=== PATIENT | female | born 1945 | race Caucasian/White ===

== ENCOUNTER 2021-02-26 13:08 | Inpatient (IN) | payer MEDICARE, OTHER ==
[~2021-02-26] VITALS: Ht 160 cm; Wt 98.0 kg
[~2021-02-26 13:08] MED LIST: AMARYL4 MG PO; CLARITIN10 M2 PO; COZAAR 50MG TAB50 MG PO; D3-20002000 UNIT PO; JANUVIA100 MG PO; LASIX20 MG PO; LEVAQUIN500 MG PO; MEDROL DOSEPAK 24 MG PO; NITROSTAT0.4 MG SL; PARLODEL2.5 MG PO; PENICILLIN V P500 MG PO; TOPROL XL25 MG PO; VITAMIN E400 UNI3 PO; ZANTAC150 MG PO
[2021-02-26 14:03] LABS: HEMOGLOBIN 12.3 gm/dl (12.3-15.3); RED BLOOD COUNT 4.08 M/UL (4.00-5.10); WHITE BLOOD COUNT 10.8 K/UL (4.5-11.0)
[2021-02-26 14:35] LABS: BUN/CREATININE RATIO 20 (0-10)
[2021-02-26] MEDS ORDERED: NITROSTAT0.4 MG SL (15:23)
[2021-02-26] MEDS ORDERED: ALPRAZOLAM1 MG PO (15:24)
[2021-02-26] MEDS ORDERED: POTASSIUM CHLO10 MEQ PO (15:28)
[2021-02-26] MEDS ORDERED: VITAMIN D325 MCG PO (15:29)
[2021-02-26] MEDS ORDERED: VITAMIN C100 MG PO (15:29)
[2021-02-26] MEDS ORDERED: B-12500 MCG PO (15:30)
[2021-02-26] MEDS ORDERED: ASPIRIN81 MG PO (15:31)
[2021-02-26] MEDS ORDERED: MAGNESIUM 300300 MG PO (15:31)
[2021-02-28 06:12] LABS: HEMOGLOBIN 12.7 gm/dl (12.3-15.3); RED BLOOD COUNT 4.24 M/UL (4.00-5.10); WHITE BLOOD COUNT 10.1 K/UL (4.5-11.0)
[2021-02-28 06:30] LABS: BUN/CREATININE RATIO 20 (0-10)
[2021-03-01 07:41] LABS: HEMOGLOBIN 10.7 gm/dl (12.3-15.3); RED BLOOD COUNT 3.59 M/UL (4.00-5.10); WHITE BLOOD COUNT 9.6 K/UL (4.5-11.0)
[2021-03-01 07:53] LABS: BUN/CREATININE RATIO 31 (0-10)
[2021-03-01 14:36] LABS: BORDETELLA PARAPERTUSSIS Not Detected (Not Detectd); BORDETELLA PERTUSSIS Not Detected (Not Detectd); CHLAMYDIA PNEUMONIAE Not Detected (Not Detectd); CORONAVIRUS HKU1 Not Detected (Not Detectd); CORONAVIRUS NL63 Not Detected (Not Detectd); CORONAVIRUS OC43 Not Detected (Not Detectd); CORONOAVIRUS 229E Not Detected (Not Detectd); HUMAN METAPNEUMOVIRUS Not Detected (Not Detectd); HUMAN RHINOVIRUS/ENTEROVIRUS Not Detected (Not Detectd); INFLUENZA A Not Detected (Not Detectd); INFLUENZA B Not Detected (Not Detectd); MYCOPLASMA PNEUMONIAE Not Detected (Not Detectd); PARAINFLUENZA VIRUS 1 Not Detected (Not Detectd); PARAINFLUENZA VIRUS 2 Not Detected (Not Detectd); PARAINFLUENZA VIRUS 3 Not Detected (Not Detectd); PARAINFLUENZA VIRUS 4 Not Detected (Not Detectd); RESPIRATORY SYNCYTIAL VIRUS Not Detected (Not Detectd)
[2021-03-01 17:10] LABS: SARS-CoV-2 NOT DETECTED (Not Detectd)
[2021-03-02 06:49] LABS: HEMOGLOBIN 12.1 gm/dl (12.3-15.3); WHITE BLOOD COUNT 11.7 K/UL (4.5-11.0)
[2021-03-02 06:51] LABS: RED BLOOD COUNT 4.01 M/UL (4.00-5.10)
[2021-03-02 07:12] LABS: BUN/CREATININE RATIO 32 (0-10)
[2021-03-03 07:37] LABS: HEMOGLOBIN 11.1 gm/dl (12.3-15.3); RED BLOOD COUNT 3.82 M/UL (4.00-5.10); WHITE BLOOD COUNT 12.3 K/UL (4.5-11.0)
[2021-03-03 08:15] LABS: BUN/CREATININE RATIO 25 (0-10)
[2021-03-03] MEDS ORDERED: LIPITOR20 MG PO (08:52)
[2021-03-03] MEDS ORDERED: JANUVIA50 MG PO (08:56)
[2021-03-03] MEDS ORDERED: POTASSIUM CHLO10 MEQ PO (09:11)
== END 2021-03-03 13:25 | disposition home or self-care (01) | DRG 287 ==
LOC: ER1 13:08 → M/S 15:05 → CDU 15:05 → M/S 17:42
PROVIDERS: Emergency Medicine; Internal Medicine; Physician Assistant; ADMIT Internal Medicine
PROC: 4A023N7 Measurement of Cardiac Sampling and Pressure, Left Heart, Percutaneous Approach (ICD-10-PCS; principal; 2021-03-02)
PROC: B2111ZZ Fluoroscopy of Multiple Coronary Arteries using Low Osmolar Contrast (ICD-10-PCS; 2021-03-02)
DX: R07.89 Other chest pain (principal); I51.81 Takotsubo syndrome; E87.1 Hypo-osmolality and hyponatremia; I11.0 Hypertensive heart disease with heart failure; I50.9 Heart failure, unspecified; I25.10 Atherosclerotic heart disease of native coronary artery without angina pectoris; I07.1 Rheumatic tricuspid insufficiency; Z20.822 Contact with and (suspected) exposure to COVID-19; E11.9 Type 2 diabetes mellitus without complications; I27.20 Pulmonary hypertension, unspecified; E66.01 Morbid (severe) obesity due to excess calories; M10.9 Gout, unspecified; Z90.710 Acquired absence of both cervix and uterus; Z90.49 Acquired absence of other specified parts of digestive tract; Z82.49 Family history of ischemic heart disease and other diseases of the circulatory system; Z98.890 Other specified postprocedural states; Z88.8 Allergy status to other drugs, medicaments and biological substances; Z79.82 Long term (current) use of aspirin; Z79.899 Other long term (current) drug therapy; Z79.4 Long term (current) use of insulin; Z68.38 Body mass index [BMI] 38.0-38.9, adult; I25.2 Old myocardial infarction
CPT/HCPCS: ECHO; 36415; 71045; 78452; 80048; 80053; 81001; 82550; 82553; 82962; 83735; 83874; 83880; 84484; 84550; 85025; 85027; 85379; 87086; 87633; 93005; 93017; 93306; 93571; 99152; 99153; 99285; A9502; C1769; C1887; J0461; J0583; J1644; J1650; J2250; J2785; J3010; J7040; Q9967; U0002

== ENCOUNTER 2021-05-22 21:29 | Emergency (ER) | payer MEDICARE, OTHER ==
[~2021-05-22 21:29] MED LIST changes: +ALPRAZOLAM1 MG PO; +ASPIRIN81 MG PO; +B-12500 MCG PO; +JANUVIA50 MG PO; +LIPITOR20 MG PO; +MAGNESIUM 300300 MG PO; +POTASSIUM CHLO10 MEQ PO; +VITAMIN C100 MG PO; +VITAMIN D325 MCG PO
[2021-05-22 21:55] LABS: HEMOGLOBIN 12.5 gm/dl (12.3-15.3); RED BLOOD COUNT 4.22 M/UL (4.00-5.10); WHITE BLOOD COUNT 10.8 K/UL (4.5-11.0)
[2021-05-22 22:26] LABS: BUN/CREATININE RATIO 25 (0-10)
== END 2021-05-23 03:00 | disposition short-term general hospital (02) ==
LOC: ER1 21:29
PROVIDERS: Physician Assistant
DX: G45.9 Transient cerebral ischemic attack, unspecified (principal); N39.0 Urinary tract infection, site not specified; I10 Essential (primary) hypertension; E78.5 Hyperlipidemia, unspecified; R29.700 NIHSS score 0
CPT/HCPCS: 70450; 70496; 70498; 80053; 81001; 82550; 82553; 82962; 83874; 84439; 84443; 84484; 85025; 87086; 93005; 96374; 99285; J0696; Q9967